=== PATIENT | female | born 2000 | race Caucasian/White ===

== ENCOUNTER 2021-05-17 16:35 | Emergency (ER) | payer BC ==
--- NOTE | 2021-05-17 17:06 | EDM.PDOC ---
ED HPI GENERAL MEDICAL PROBLEM - General Stated Complaint: SORE THROAT / SOB Time Seen by Provider: 05/17/21 17:30 Source of Information: Reports: Patient History Limitations: Reports: No Limitations - History of Present Illness INITIAL COMMENTS - FREE TEXT/NARRATIVE: pt states onset of head and chest congestion last night and subjective fevers. no tylenol or ibuprofen use today, no fevers today. coinciding dry hacking cough with sore throat. she denies body aches, dyspnea, nausea, vomiting. - Related Data Allergies Allergy/AdvReac Type Severity Reaction Status Date / Time Penicillins Allergy Rash Verified 05/17/21 17:21 Home Meds: Home Meds Albuterol Sulfate [Albuterol Sulfate Hfa] 8.5 gm IH 6XDAY PRN #1 [email or web address] [Rx] ED ROS GENERAL - Review of Systems Review Of Systems: Comprehensive ROS is negative, except as noted in HPI. ED EXAM, GENERAL - Physical Exam Exam: See Below Exam Limited By: No Limitations General Appearance: Alert, WD/WN, No Apparent Distress Eye Exam: Bilateral Eye: EOMI, PERRL Ears: Normal External Exam, Normal TMs Ear Exam: Bilateral Ear: TM normal, TM Bulging Nose: Normal Inspection, Normal Mucosa Throat/Mouth: Normal Inspection, Normal Lips, Normal Teeth, Normal Oropharynx, Normal Voice, No Airway Compromise Respiratory/Chest: No Respiratory Distress, Lungs Clear, Normal Breath Sounds, No Accessory Muscle Use, Chest Non-Tender Cardiovascular: Normal Peripheral Pulses, Regular Rate, Rhythm, No Murmur Peripheral Pulses: 2+: Radial (L), Radial (R) Neurological: Alert, Oriented, CN II-XII Intact, Normal Cognition, Normal Gait Psychiatric: Normal Affect, Normal Mood Skin Exam: Warm, Dry, Intact, No Rash Course - Orders/Labs/Meds Orders: Active Orders 24 hr Category Date Time Status CORONAVIRUS COVID-19 RAPID [MOLEC] Stat Lab 05/17/21 16:50 Ordered STREP SCREEN A RAPID [RM] Stat Lab 05/17/21 16:50 Ordered Departure - Departure Time of Disposition: 18:20 Disposition: Home, Self-Care 01 Condition: Good Clinical Impression: URI (upper respiratory infection) - Discharge Information *PRESCRIPTION DRUG MONITORING PROGRAM REVIEWED*: Not Applicable *COPY OF PRESCRIPTION DRUG MONITORING REPORT IN PATIENT RANDY: Not Applicable Prescriptions: Albuterol Sulfate [Albuterol Sulfate Hfa] 8.5 gm IH 6XDAY PRN #1 [email or web address] PRN Reason: Cough - Problem List & Annotations (1) URI (upper respiratory infection) SNOMED Code(s): 57329949 Code(s): J06.9 - ACUTE UPPER RESPIRATORY INFECTION, UNSPECIFIED Status: Acute - Problem List Review Problem List Initiated/Reviewed/Updated: Yes - My Orders Last 24 Hours: My Active Orders 05/17/21 16:50 CORONAVIRUS COVID-19 RAPID [MOLEC] Stat STREP SCREEN A RAPID [RM] Stat - Assessment/Plan Last 24 Hours: My Active Orders 05/17/21 16:50 CORONAVIRUS COVID-19 RAPID [MOLEC] Stat STREP SCREEN A RAPID [RM] Stat Assessment:: assessment: viral URI plan: albuterol INH tylenol and ibuprofen PRN decongestants as discussed
== END 2021-05-17 18:12 | disposition home or self-care (01) ==
LOC: LB.ED 16:35
DX: J06.9 Acute upper respiratory infection, unspecified (principal); Z88.0 Allergy status to penicillin; Z20.822 Contact with and (suspected) exposure to COVID-19
CPT/HCPCS: 87430; 99283; U0002